=== PATIENT | female | born 1940 | race Caucasian/White ===

== ENCOUNTER 2017-04-27 13:10 | Inpatient (IN) | payer OTHER ==
[~2017-04-27] VITALS: Ht 165.1 cm; Wt 80.3 kg
[~2017-04-27 13:10] MED LIST: ASPI325T8 PO; CARB200T PO; CLOP75TA57 PO; CRESTOR5 MG PO; OXYC-323 PO; PRAS10TA9 PO
--- NOTE | 2017-04-27 13:30 | PHYS DOC ---
Past Medical History Past Medical History: High Cholesterol, Heart Disease, Seizure Past Surgical History: Angioplasty, Coronary Bypass Surgery, Other Additional Past Surgical Histo: DOUBLE BYPASS AND 5 STENTS Alcohol Use: None Drug Use: None Adult General Chief Complaint Chief Complaint: CHEST PAIN HPI HPI Patient is a 77 year old F who presents with chest pain. Patient states on Saturday she developed chest pain rating to her back and her neck and her left arm and feels like her previous NM. Patient states she took pain medication hoping it would go away however since the pain has not gone away she came the emergency room. In the emergency room the patient denies any chest pain however complains of neck pain and left arm pain. Patient states the pain is not worse with exertion. Patient denies any fevers. Patient denies any shortness of breath. Patient denies any previous history of a DVT or PE. Patient states she' s had [address] Medel is her fiscal analyst. Patient has no other complaints. Review of Systems Review of Systems GEN: Denies fevers, chills, sweats HEENT: Denies blurred vision, sore throat CV: chest pain RESP: Denies shortness of air, cough GI: Denies n/v/d NEURO: Denies confusion, dizziness MSK: Denies weakness, joint pain/swelling Current Medications Current Medications Current Medications Medications (Trade) Dose Ordered Sig/Massiel Start Time Stop Time Status Last Admin Dose Admin Aspirin (Children'S Aspirin) 324 mg 1X ONCE 04/27/17 13:45 04/27/17 13:46 DC 04/27/17 13:36 324 MG Morphine Sulfate 2 mg 1X ONCE 04/27/17 15:00 04/27/17 15:01 Allergies Allergies Allergies Coded Allergies Type Severity Reaction Last Updated Verified No Known Drug Allergies 09/30/14 No Physical Exam Physical Exam GEN.: No apparent distress. Alert and oriented. HEENT: Head is normocephalic, atraumatic NECK: Supple. LUNGS: CTAB. HEART: RRR, S1, S2 present. Peripheral pulses intact ABDOMEN: Soft, nontender. Positive bowel sounds. EXTREMITIES: Without any cyanosis. NEUROLOGIC: Normal speech, normal tone PSYCHIATRIC: Normal affect, normal mood. SKIN: No ulcerations Current Patient Data Vital Signs Vital Signs Date Time Temp Pulse Resp B/P (MAP) Pulse Ox O2 Delivery O2 Flow Rate FiO2 04/27/17 13:12 98.1 92 20 164/77 (106) 97 Room Air 98.1 Lab Values Laboratory Tests Test 04/27/17 13:20 White Blood Count 7.3 x10^3/uL (4.0-11.0) Red Blood Count 4.05 x10^6/uL (3.50-5.40) Hemoglobin 13.8 g/dL (12.0-15.5) Hematocrit 41.7 % (36.0-47.0) Mean Corpuscular Volume 103 fL (79-100) H Mean Corpuscular Hemoglobin 34 pg (25-35) Mean Corpuscular Hemoglobin Concent 33 g/dL (31-37) Red Cell Distribution Width 12.7 % (11.5-14.5) Platelet Count 232 x10^3/uL (140-400) Neutrophils (%) (Auto) 45 % (31-73) Lymphocytes (%) (Auto) 47 % (24-48) Monocytes (%) (Auto) 6 % (0-9) Eosinophils (%) (Auto) 1 % (0-3) Basophils (%) (Auto) 1 % (0-3) Neutrophils # (Auto) 3.3 x10^3uL (1.8-7.7) Lymphocytes # (Auto) 3.4 x10^3/uL (1.0-4.8) Monocytes # (Auto) 0.4 x10^3/uL (0.0-1.1) Eosinophils # (Auto) 0.1 x10^3/uL (0.0-0.7) Basophils # (Auto) 0.1 x10^3/uL (0.0-0.2) Sodium Level 140 mmol/L (136-145) Potassium Level 4.3 mmol/L (3.5-5.1) Chloride Level 101 mmol/L (98-107) Carbon Dioxide Level 30 mmol/L (21-32) Anion Gap 9 (6-14) Blood Urea Nitrogen 11 mg/dL (7-20) Creatinine 0.9 mg/dL (0.6-1.0) Estimated GFR (Cockcroft-Gault) 60.9 BUN/Creatinine Ratio 12 (6-20) Glucose Level 126 mg/dL (70-99) H Calcium Level 9.0 mg/dL (8.5-10.1) Total Bilirubin 0.2 mg/dL (0.2-1.0) Aspartate Amino Transferase (AST) 18 U/L (15-37) Alanine Aminotransferase (ALT) 26 U/L (14-59) Alkaline Phosphatase 90 U/L (46-116) Troponin I Quantitative < 0.017 ng/mL (0.000-0.055) Total Protein 7.7 g/dL (6.4-8.2) Albumin 3.7 g/dL (3.4-5.0) Albumin/Globulin Ratio 0.9 (1.0-1.7) L Laboratory Tests 04/27/17 13:20 Laboratory Tests 04/27/17 13:20 EKG EKG 1317: EKG shows normal sinus rhythm rate of 91 no STEMI[] Radiology/Procedures Radiology/Procedures Chest x-ray NAD[] Course & Med Decision Making Course & Med Decision Making Pertinent Labs and Imaging studies reviewed. (See chart for details) Patient was seen and examined emergency room the cardiac workup was ordered 1359: Patient was reexamined and updated on x-ray findings and lab work. Patient states her chest pain has resolved however still having neck and left arm pain. 1422: Discussed CC/HP/PMH with Dr. Medel and recommends admit [] MDM: After reviewing the chart, CC/HPI/PMH, physical exam, [lab results], [ radiological results], I do not believe the patient having a STEMI however given the patient's significant cardiac history we'll admit for observation. [] Dragon Disclaimer Dragon Disclaimer This electronic medical record was generated, in whole or in part, using a voice recognition dictation system. Departure Departure Impression: Primary Impression: Chest pain Additional Impression: CAD (coronary artery disease) Disposition: ADMITTED INPATIENT Admitting Physician: Other (Dr. Medel) Referrals: JACQUI HITCHCOCK MD (PCP) Problem Qualifiers DAVID FONSECA DO Apr 27, 2017 13:30
[2017-04-27 13:36] LABS: BASO # 0.1 x10^3/uL (0.0-0.2); BASO % 1 % (0-3); EOS % 1 % (0-3); HEMATOCRIT 41.7 % (36.0-47.0); HEMOGLOBIN 13.8 g/dL (12.0-15.5); LYMPH # 3.4 x10^3/uL (1.0-4.8); LYMPH % 47 % (24-48); MEAN CORPUSCULAR HEMOGLOBIN 34 pg (25-35); MEAN CORPUSCULAR HGB CONC 33 g/dL (31-37); MEAN CORPUSCULAR VOLUME 103 fL (79-100); MONO % 6 % (0-9); NEUT % 45 % (31-73); PLATELET COUNT 232 x10^3/uL (140-400); RED BLOOD COUNT 4.05 x10^6/uL (3.50-5.40); RED CELL DISTRIBUTION WIDTH 12.7 % (11.5-14.5); WHITE BLOOD COUNT 7.3 x10^3/uL (4.0-11.0)
[2017-04-27 13:43] LABS: CREATININE 0.9 mg/dL (0.6-1.0); GFR 60.9; POTASSIUM 4.3 mmol/L (3.5-5.1)
[2017-04-27] MEDS ORDERED: ASPIRIN CHEWABLE 81 MG TABLET. PO ONE (13:45)
[2017-04-27 13:50] LABS: ALBUMIN 3.7 g/dL (3.4-5.0); ALBUMIN/GLOBULIN RATIO 0.9 (1.0-1.7); TOTAL BILIRUBIN 0.2 mg/dL (0.2-1.0); TOTAL PROTEIN 7.7 g/dL (6.4-8.2)
--- NOTE | 2017-04-27 14:08 | RAD ---
PA and lateral chest radiographs 04/27/2017 Clinical history: Chest pain. PA and lateral digital radiographs of the chest were obtained. Comparison study is dated 06/06/2016. Surgical clips are seen within the anterior mediastinum. The cardiac silhouette is normal in size. The thoracic aorta is mildly tortuous. No acute pulmonary infiltrate is seen. No pleural effusion or pneumothorax is noted. Degenerative changes are seen involving the thoracic spine. Impression: No acute abnormality is seen.
[2017-04-27] MEDS ORDERED: MORPHINE SULFATE 4 MG/ML DISP.SYRIN. IV PRN (15:00)
[2017-04-27] MEDS ORDERED: ONDANSETRON PF 4 MG/2 ML VIAL. IV PRN (15:00)
[2017-04-27] MEDS ORDERED: MORPHINE SULFATE 2 MG/ML DISP.SYRIN. IM ONE (15:00)
[2017-04-27] MEDS ORDERED: NITROGLYCERIN SUBLINGUAL 0.4 MG BOTTLE OF 25. SL PRN (15:00)
[2017-04-27 15:54] VITALS: BP 187/80
[2017-04-27] MEDS ORDERED: traMADol 50 MG TABLET PO PRN (17:15)
[2017-04-27] MEDS ORDERED: IBUPROFEN 400 MG TABLET. PO PRN (17:15)
[2017-04-27] MEDS ORDERED: ACETAMINOPHEN 500 MG TABLET PO PRN (17:15)
--- NOTE | 2017-04-27 18:00 | HP ---
ADMIT DATE: 04/27/2017 HISTORY OF PRESENT ILLNESS: This is a 77-year-old white female who drove herself to the Emergency Room after experiencing severe pain in the left suprascapular area, the left shoulder and down the left arm. She has had this pain for the last 4 days. In fact, she saw me on the first day that she had had the pain, but did not mention it to me believing that it may go away. She has been using ibuprofen with which it improves only to come back. She started to have the pain all night. She took Tylenol PM. This morning, she had the pain and took ibuprofen. [place] the pain recurred and this time it was much worse and so she decided to come into the Emergency Room. The history dates back to about 30 years ago when she came in with similar pain in the left shoulder in the suprascapular area, left arm and left jaw. 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 At that time, we were not being too aggressive with the ostial obstruction. She underwent open heart surgery. The surgeon, even though she was just in her 40s, decided to place a vein graft instead of the left internal mammary artery. She did well thereafter. I believe she had either balloon angioplasty or stent placed about 5-6 years ago in the graft to the left anterior descending. She came in, in 09/2014 with similar pain. She underwent a myocardial perfusion imaging study, which showed a large area of ischemia. She had what appeared to be thrombi in the proximal portion of the vein graft to the left anterior descending. A long stent was placed. She did well thereafter again until 06/2016 when she came in with the pain. Since the pain was very similar to the one she had had prior to her previous stenting, no further investigation was done and she was taken straight to the laboratory mechanical technician. There were no EKG changes. She had an intrastent stenosis in a very localized area and this was stented again. She has been under a lot of stress over the last 1 year since the of her . She has dyslipidemia. Her LDL cholesterol was checked a year ago and it was 177. She has been intolerant to all statins. She could not tolerate Crestor being given even once a week. In 09/2016, we got her to take PCSK9 Praluent at 150 mg once in 2 weeks. She was given samples for the first 2 months. She said that she could not afford the copay, and even though the patient portal representative offered free samples, she did not quite understand or whatever, she did not come back to the office for any more injections. After having taken the PCSK9 for 2 months her LDL cholesterol came down from 177 to 58 mg%. She had no side effects. There is no history of hypertension or diabetes mellitus. She does have seizure disorder and she has had it for several decades. She has petit mal. She sees a neurologist in [facility], Dr. Aden. He has had her on Tegretol 500 mg twice a day. When she was here in 09/2014, a Tegretol level was drawn and it was high so the dose of Tegretol was decreased. However, a few weeks later she had a petite mal seizure. She saw Dr. Aden, her usual neurologist, who increased it back to 500 mg twice a day despite the higher level. She has thus been on it ever since and has had no further episodes of seizures. She is fairly inactive at home. She does not do any regular exercises. She has not lifted any heavy weights recently. 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 She has never smoked. She does not take alcohol. Her appetite has been fair. She has had no weight gain or weight loss. She does have insomnia unless she takes Tylenol PM. Bowel movements have been normal and urine has been normal. She did have some swelling of her left leg about 2 years ago. She was evaluated and no etiology was found. She says she still has some swelling and even though it is not obvious, she says when she wears socks there is an indentation on her left leg, but not on her right leg. Her present medications are aspirin 325 mg a day and Tegretol 500 mg twice a day. PHYSICAL EXAMINATION: GENERAL: She was in no distress. She stated that the pain had subsided with morphine, but is now recurring. It is mild. It is in the left suprascapular area, left shoulder and the lateral aspect of her left arm. There is local tenderness in those areas. Movement of the arm or the neck does not exacerbate the pain. VITAL SIGNS: The heart rate was 70 per minute and regular. The blood pressure is 110/80. LUNGS: Clear. CARDIOVASCULAR: The heart sounds are normal with no murmur or gallop. ABDOMEN: Soft. EXTREMITIES: There is no obvious edema of the legs. The distal pulses in the foot were palpable. NEUROLOGICAL: The carotids are palpable with no bruits. IMPRESSION: 1. Left suprascapular pain, probable muscular pain. 2. Rule out cervical spondylosis. 3. Rule out manifestation of angina with history of known coronary artery disease. 4. Dyslipidemia, intolerant of statins and thus not treated. 5. Seizure disorder with petite mal. PLAN: To do a myocardial perfusion imaging study tomorrow. I would also like to do an MRI, but she is very claustrophobic and this could be done as an outpatient in one of the places that have open MRI. RICK PATEL MD DR: JERMAINE/radha JOB#: [id number] / [id number]
[2017-04-27 19:40] VITALS: BP 148/71
[2017-04-27] MEDS: carBAMazepine 200 MG TABLET PO SCH (20:23)
[2017-04-27 23:40] VITALS: BP 136/62
[2017-04-28 03:45] VITALS: BP 153/87
[2017-04-28] MEDS: ACETAMINOPHEN 325 MG TABLET. PO PRN ×2 (04:09→11:00)
[2017-04-28 05:17] LABS: BASO % 1 % (0-3); EOS % 1 % (0-3); HEMATOCRIT 38.9 % (36.0-47.0); HEMOGLOBIN 13.4 g/dL (12.0-15.5); LYMPH # 2.8 x10^3/uL (1.0-4.8); LYMPH % 49 % (24-48); MEAN CORPUSCULAR HEMOGLOBIN 35 pg (25-35); MEAN CORPUSCULAR HGB CONC 35 g/dL (31-37); MEAN CORPUSCULAR VOLUME 102 fL (79-100); MONO % 6 % (0-9); NEUT % 43 % (31-73); PLATELET COUNT 215 x10^3/uL (140-400); RED BLOOD COUNT 3.83 x10^6/uL (3.50-5.40); RED CELL DISTRIBUTION WIDTH 13.1 % (11.5-14.5); WHITE BLOOD COUNT 5.8 x10^3/uL (4.0-11.0)
[2017-04-28 05:34] LABS: CALCIUM 8.9 mg/dL (8.5-10.1); CREATININE 0.9 mg/dL (0.6-1.0); GFR 60.9; POTASSIUM 4.8 mmol/L (3.5-5.1)
[2017-04-28 07:50] VITALS: BP 135/60
[2017-04-28] MEDS ORDERED: ASPIRIN 325 MG TABLET PO SCH (08:00)
[2017-04-28] MEDS: carBAMazepine 200 MG TABLET PO SCH (09:24)
--- NOTE | 2017-04-28 12:43 | EKG ---
[facility] [address] [place] [address] Test Date: 2017-04-27 Test Time: 13:13:57 Pat Name: SILVIA LONG Department: Room: 201 1 Gender: F Residential Housekeeper: : 1940 Requested By: DAVID FONSECA Order Number: [id number] Reading MD: Fadumo Medel Measurements Intervals Felicity Rate: 91 P: 30 CO: 184 QRS: -26 QRSD: 82 T: 66 QT: 358 QTc: 442 Interpretive Statements SINUS RHYTHM LEFTWARD AXIS T ABNORMALITY IN HIGH LATERAL LEADS ABNORMAL ECG Electronically Signed On 04-29-2017 12:03:35 CDT by Fadumo Medel
--- NOTE | 2017-05-02 20:41 | DS ---
DATE OF DISCHARGE: 04/28/2017 This is a 77-year-old white female who came into the Emergency Room with pain in the left suprascapular area, shoulder, left arm. There was no radiation into her left jaw. This pain she said was similar to the pain she has had with acute coronary syndrome. An EKG in the Emergency Room was normal. Cardiac enzymes are negative. The pain did subside with some Motrin and Tylenol only to recur. She was advised a myocardial perfusion imaging study. She agreed to it, but the next morning when it came time to injecting the isotope, she refused. It was Saturday. The nuclear medicine people thus went home. When I came to see her, she said she did not want to do the stress test because of very bad experience with dipyridamole several years ago. I then had to reassure her that Lexiscan is being done now and I reminded her that she had undergone myocardial perfusion imaging study with Lexiscan in 09/2014, which she tolerated well. She then agreed to it. She said that the pain was present, but not as severe with Tylenol and Motrin. Because of the pain not radiating to her jaw as it did on the previous times and because her troponin was normal, the next morning despite several hours of pain, it was felt that this current symptom was probably not due to myocardial ischemia, though we needed to rule that out. She was discharged with the thought that she will get myocardial perfusion imaging study as an outpatient. MRI of the cervical spine and shoulder was suggested to her while she was in the hospital, but she refused stating that she would do an MRI only ____ MRI, which the hospital did not have. FINAL DIAGNOSES: 1. Suprascapular pain, probable muscular pain. 2. History of coronary artery disease. 3. Dyslipidemia, untreated. 4. Probable cervical spondylosis or rotator cuff tear. She was thus discharged. She was asked to continue to take the aspirin and the Tegretol. She was asked to take Tylenol for the pain and the NSAIDs very sparingly. Arrangements will be made for her to undergo a myocardial perfusion imaging study as an outpatient. RICK PATEL MD DR: JERMAINE/radha JOB#: [id number] / [id number]
== END 2017-04-28 11:00 | disposition home or self-care (01) | DRG 552 ==
LOC: ER 13:10 → 2 NORTH 14:49 → OBSVTOIN 14:49
PROVIDERS: ADMIT Specialist; ATTEND Specialist
DX: M47.892 Other spondylosis, cervical region (principal); G40.409 Other generalized epilepsy and epileptic syndromes, not intractable, without status epilepticus; I25.119 Atherosclerotic heart disease of native coronary artery with unspecified angina pectoris; M79.1 Myalgia; F40.240 Claustrophobia; E78.5 Hyperlipidemia, unspecified; G47.00 Insomnia, unspecified; Z79.82 Long term (current) use of aspirin; Z95.1 Presence of aortocoronary bypass graft; Z95.5 Presence of coronary angioplasty implant and graft
CPT/HCPCS: 36415; 71020; 80048; 80053; 83735; 84484; 85025; 93005; 96372; G0379; J2270; 99285-25